=== PATIENT | male | born 1955 | race Caucasian/White ===

== ENCOUNTER 2016-07-21 22:32 | Inpatient (IN) | payer OTHER ==
--- NOTE | ~2016-07-21 | CN ---
Consultation Report [facility] [address] [place]. [address] NAME: OH ALLRED : 57 STATUS : ADM IN PAT#: [id number] AGE: 61 ADM/REG DATE : 07/21/16 MR#: [id number] REPORT SERV DATE: 07/22/16 DICTATED BY: DATE: REPORT STATUS : Draft TRANSCRIBED BY: MODTara DATE: 07/22/16 CONSULTATION REPORT DATE OF CONSULTATION: REASON FOR CONSULTATION: CKD. HISTORY OF PRESENT ILLNESS: Mr. Allred is a 61-year-old white male, known to have CKD, stage IV, who follows in the office with Dr. Kauffman. He has advanced CKD and has an AV fistula in place to the left upper arm. He left the hospital approximately two to three weeks ago with a creatinine of around 3.7. He presented back to the hospital at [facility] yesterday with abdominal pain and there was a question of whether this was acute renal failure, but it looks to be at his baseline and he was transferred here because there was thought that he may need dialysis. He is having no nausea, vomiting, and no shortness of breath. He is not on any oxygen. No fevers or chills. Actually feels well today. He states that he feels much better, and his abdominal complaints are resolved. PAST MEDICAL HISTORY: CKD, stage IV; bilateral BKA; diabetes; CHF; hypertension; COPD; hyperlipidemia; and peripheral vascular disease. SOCIAL HISTORY: He lives with family. Smokes. No alcohol or illicit drug use. FAMILY MEDICAL HISTORY: No end-stage renal disease. ALLERGIES: NONE. MEDICATIONS: At the time of consultation; aspirin, atorvastatin, Bumex, calcium acetate, carvedilol, docusate, gemfibrozil, heparin, insulin, isosorbide, hydralazine, and hydroxyzine. REVIEW OF SYSTEMS: A 12-point review of systems was obtained and negative with the exception of that in the HPI. PHYSICAL EXAMINATION: VITAL SIGNS: Temp 97.6, blood pressure 117/62, pulse 96, respiratory rate 16, and O2 saturation is 94% on room air. GENERAL: This is a pleasant, cooperative white male. He is awake, alert, and oriented x3, in no acute distress, answers questions appropriately. HEENT: Normocephalic and atraumatic. Conjunctivae are clear. Sclerae are anicteric. Poor jail. Oral mucosa is moist. NECK: Supple. I did not see neck vein distention. LUNGS: Respirations are even and unlabored. Globally decreased breath sounds, but clear. HEART: His heart rate is regular. No murmur, rub, or gallop. Consultation Report [facility] [id number] [place]. [address] NAME: OH ALLRED : 57 STATUS : ADM IN [facility]#: [id number] AGE: 61 ADM/REG DATE : 07/21/16 MR#: [id number] REPORT SERV DATE: 07/22/16 DICTATED BY: DATE: REPORT STATUS : Draft TRANSCRIBED BY: MODL DATE: 07/22/16 ABDOMEN: Soft, nontender, and obese. No CVA tenderness. BACK: Within normal limits. EXTREMITIES: Got bilateral BKA with no noted edema. NEURO: Generalized weakness. No focal deficits. His mood and affect, he is very pleasant and appropriate. PERTINENT LABS AND X-RAYS: Sodium 138, potassium 4.8, chloride 105, CO2 21, BUN of 66, creatinine of 3.7, calcium of 8.7, magnesium 2.3, phosphorus of 5.3. WBC is 9.1, H and H 7 and 25, and platelets 481,000. IMPRESSION: 1. Chronic kidney disease, stage IV. Creatinine is actually stable and he is experiencing no uremic symptoms, no volume overload issues that I could appreciate. He is stable on room air. 2. Abdominal pain. 3. Left AV fistula. 4. Left below-knee amputation that was recent due to osteomyelitis. 5. Right below-knee amputation, previously, diabetes. 6. Hypertension. 7. Peripheral vascular disease. 8. Chronic obstructive pulmonary disease. PLAN: No plan to initiate dialysis at this time. He does have an AV fistula in place, just ready for use when we do need to do so. He is on his usual medications. His oxygen saturations are stable. There was a question of some pulmonary edema, I will check a chest x-ray, that is physical exam is not consistent with this. We will follow along with you. Thank you for the consultation. GOKUL LIZY Jones / [id number] CC: Edis Gaitan DO
--- NOTE | ~2016-07-21 | DS ---
Discharge Summary [facility] [address] [place]. [address] NAME: OH TANG : 57 STATUS : DIS IN PAT#: [id number] AGE: 61 ADM/REG DATE : 07/21/16 MR#: [id number] REPORT SERV DATE: 07/26/16 DICTATED BY: LISA THOMAS DATE: 07/25/16 REPORT STATUS : Draft TRANSCRIBED BY: MODL DATE: 07/25/16 ADMISSION DATE: 07/21/2016 DISCHARGE DATE: 07/25/2016 DIAGNOSES: 1. Fluid overload. 2. Chronic obstructive pulmonary disease with exacerbation. 3. Chronic kidney disease. 4. History of type 2 diabetes. CONSULTANTS: Nephrology. HOSPITALIST: Edis Gaitan DO; Lisa Thomas M.D. DISCHARGE MEDICATIONS: Aspirin 81 mg p.o. daily, Lipitor 40 mg p.o. q.h.s., Bumex 2 mg p.o. b.i.d., PhosLo 667 mg p.o. with meals, Coreg 6.25 mg p.o. b.i.d., docusate sodium 100 mg p.o. b.i.d., Lopid 600 mg p.o. b.i.d., Levemir 10 units subcu q.12 hours, sliding scale insulin per home dose, isosorbide nitrite 10 mg p.o. three times a day, Atarax 25 mg p.o. three times a day, albuterol MDI two puffs inhaled scheduled every four hours, hydralazine 10 mg p.o. q.12 hours p.r.n. only for systolic pressures greater than 150, Spiriva one cap inhaled daily, sodium bicarb 650 mg p.o. daily. HOSPITAL COURSE: Please see H and P dictated by Dr. Everett Sr. This is a 61 years old male with a past medical history of bilateral lower extremity amputation, also history of CKD stage IV, presented to [facility], with anasarca and some lower abdominal discomfort and BUN and creatinine of 66 and 3.9. The patient follows up with Dr. Kauffman, chief airport guide. He was transferred to [facility] through the Hospitalist Service for further workup. The patient was seen by Dr. Everett Sr and then cared for by Dr. Edis Gaitan, who performed diuresing for the patient's anasarca. Also, the patient was seen by Nephrology, who stated the patient was stable clinically. The patient did not have any signs of infection. He required diabetes control, also treatment for COPD. By the time I saw this patient on 05/24/2017, the patient was very adamant about being discharged to home and very angry that he was still in the hospital and stated that he feels a lot better, not having any discomfort. Apparently, the patient did have a CT of the abdomen and pelvis while at [facility] prior to coming to [facility] which revealed no acute findings with the abdominal CT per report, but did find some moderate bilateral effusions and a small volume of ascites with some diffuse peritoneal stranding, but no pneumoperitoneum. The patient had a KUB as well at [facility] that was nondiagnostic. The patient was ready for discharge to home and clinically stable, having good bowel movements, feeling a lot better, and adamant about being discharged to home. O2 requirement also has improved during this hospital course, and also, the patient will be tested for any requirement for home O2 if needed will be ordered as per Case Management. Also, we will order home health nursing. Discharge Summary [address] [address] NAME: OH TANG : 57 STATUS : DIS IN [facility]#: [id number] AGE: 61 ADM/REG DATE : 07/21/16 MR#: [id number] REPORT SERV DATE: 07/26/16 DICTATED BY: LISA THOMAS DATE: 07/25/16 REPORT STATUS : Draft TRANSCRIBED BY: AIDEN DATE: 07/25/16 [facility]/AIDEN Lisa Thomas M.D. / [id number] CC: Aisha Back M.D.
--- NOTE | ~2016-07-21 | HP ---
History And Physical [place] [address] [facility] [place]. [address] NAME: MORALES ALLRED : 57 STATUS : ADM IN [facility]#: [id number] AGE: 61 ADM/REG DATE : 07/21/16 MR#: [id number] REPORT SERV DATE: 07/22/16 DICTATED BY: EVERETT MCCORMACK DATE: 07/22/16 REPORT STATUS : Draft TRANSCRIBED BY: MODL DATE: 07/22/16 DATE OF ADMISSION: 07/21/2016 CHIEF COMPLAINT: This is a patient I had accepted in transfer from [facility]. I spoke to Dr. Sarah over there. HISTORY OF PRESENT ILLNESS: Briefly, this is a 61-year-old male who was discharged from [facility] after he had a left below-knee amputation done due to wet gangrene, cellulitis, and osteomyelitis. He was discharged home and was doing well until today when he returned to the ER at [place] with anasarca and the lower abdominal pain. Workup there revealed worsening renal function with BUN and creatinine 66 and 3.9 respectively. He also had a potassium of 5.0 there. He is being followed by Dr. Kauffman, his procurement internship, for his renal failure and apparently has had many visits in his office. Hemodialysis has been contemplated. Mr. Allred has had a shunt placed in his arm which he says about four to six months ago already. In the ER there, he also had elevation of troponin from 0.05 to 0.07. EKG there showed no acute changes, although it did shows anterior infarct, age undetermined. According to Dr. Sarah, he also had bilateral pulmonary edema on his chest x-ray and ascites as well. The patient had requested transfer to [facility] rather than [place]. At the time of my evaluation here he denied any chest pain, palpitations, or orthopnea. He had no cough, hemoptysis, night sweats, or weight loss. He did not have any recent falls or loss of consciousness. No history of fevers, chills, nausea, vomiting, diarrhea. He did have some abdominal pain, which was in the lower abdomen. No history of recent hematemesis, hematochezia, or hematuria. No other history of recent travel or exposures other than those mentioned above. Of note, this left below-knee amputation wound is healing really well with no signs of infection. PAST MEDICAL HISTORY: His past medical history is significant for: 1. History of diabetes mellitus, poorly controlled. 2. Chronic congestive heart failure. 3. Peripheral vascular disease. 4. COPD. 5. Prior right henah-vlvu-ybgykeozey and recent left gfitk-prph-gwskwzxzfv. 6. He also has chronic kidney disease, stage 4, followed by Dr. Kauffman. SOCIAL HISTORY: He has about 50- to 62-pioe-zwuv history of smoking, although he has cut back now. He denies alcohol use or recreational drug use. He used to work in a nursery. FAMILY HISTORY: Noncontributory. MEDICATIONS: His medications at home were reviewed by me in the chart today and reordered by me. REVIEW OF SYSTEMS: As in history of present illness. All other systems were reviewed in detail and are quite History And Physical [address] [place]. [address] NAME: MORALES ALLRED : 57 STATUS : ADM IN [facility]#: [id number] AGE: 61 ADM/REG DATE : 07/21/16 MR#: [id number] REPORT SERV DATE: 07/22/16 DICTATED BY: EVERETT MCCORMACK DATE: 07/22/16 REPORT STATUS : Draft TRANSCRIBED BY: AIDEN DATE: 07/22/16 unremarkable. PHYSICAL EXAMINATION: GENERAL: This is a pleasant 61-year-old, not in any acute distress. HEENT: His head is atraumatic and normocephalic. He is alert, awake, oriented to time, place, and person. Pupils are equal, reacting to light and accommodating. External ocular muscles are intact. Membranes are moist and pink. Sclerae are nonicteric. NECK: Supple with no jugular venous distention, lymphadenopathy, or thyromegaly. LUNGS: Clear to auscultation with no wheezes, rubs, or crackles. HEART: Heart sounds were regular with no murmurs, rubs, or gallops. ABDOMEN: Soft and nontender. Bowel sounds are present. EXTREMITIES: Bilateral below-knee amputation. No cyanosis or clubbing. NEUROLOGIC: Grossly intact. No focal sensory or motor deficits. Higher functions appeared intact. VITAL SIGNS: His vital signs today showed a temperature of 97.9, pulse 99, respirations 20 a minute, blood pressure was 140/76, and oxygen saturations were 100% breathing 2 L via nasal cannula. LABORATORY DATA: Laboratory data and other data which accompanied the patient from [facility] was reviewed by me in the chart today. IMPRESSION: 1. Acute on chronic kidney disease to end-stage renal disease. 2. Elevated troponins. 3. Recent left ewiwp-esmz-gswcgfrtqg. 4. Diabetes mellitus, poorly controlled. 5. Chronic congestive heart failure. 6. Peripheral vascular disease. 7. Chronic obstructive pulmonary disease. 8. Prior right yzzoj-ouwn-ubbgzimjqm. PLAN: We will admit Mr. Allred to Cardiac Telemetry Unit for close monitoring. We will follow serial cardiac enzymes to rule out acute coronary syndrome which is probably secondary to his acute on chronic kidney disease. We will go ahead and consult Dr. Kauffman and I think a dialogue has been going on regarding hemodialysis. We will let Dr. Kauffman advice the patient accordingly. Meanwhile, we will start him on bronchodilator treatments, continue supplemental oxygen therapy, and place him on NovoLog given subcutaneously per sliding scale for blood sugar control. He will be placed on unfractionated heparin for DVT prophylaxis while here. I have discussed the above plans with the patient. His questions were answered and he is agreeable to the above recommendations. Hospitalist Service will be following him during his stay here. /AIDEN History And Physical [address] [address] NAME: MORALES ALLRED : 57 STATUS : ADM IN [facility]#: [id number] AGE: 61 ADM/REG DATE : 07/21/16 MR#: [id number] REPORT SERV DATE: 07/22/16 DICTATED BY: EVERETT MCCORMACK DATE: 07/22/16 REPORT STATUS : Draft TRANSCRIBED BY: AIDEN DATE: 07/22/16 Everett Mccormack M.D. / [id number] CC: Kevin Dave MD
[~2016-07-21 22:32] MED LIST: AMIT10 PO; APRES10B PO; ASAB PO; AT25 PO; BUM1 PO; BUM2 PO; COREG6 PO; COZ50 PO; DEMA20 PO; DSS PO; GLUCOPHAGE1000 MG PO; HUMULIN N1 ML SC; HUMULIN R1 ML SC; INSNOVN SC; L40 PO; LEVEMIR SC; LIPITOR40 PO; LOP50 PO; LOPID6 PO; MONOKET PO; NORV10 PO; NOVOLOG SC; PERCOCET1 TA2 PO; PHOSLO PO; PROVHFA INH; ZANTAC150 MG PO
[2016-07-22 06:55] LABS: BASOPHILS 0.7 %; BASOPHILS ABSOLUTE 0.06 10/3/uL (0.0-0.16); EOSINOPHILS 11.8 %; EOSINOPHILS ABSOLUTE 1.07 10/3/uL (0.0-0.53); HEMATOCRIT 25.8 % (40.0-51.0); HEMOGLOBIN 7.9 g/dL (13.6-17.8); IMMATURE GRANULOCYTES 0.2 %; IMMATURE GRANULOCYTES ABSOLUTE 0.02 10/3/uL (0.0-0.11); LYMPHOCYTES 16.9 %; LYMPHOCYTES ABSOLUTE 1.53 10/3/uL (0.67-4.30); MEAN CORPUS HGB CONC 30.6 g/dL (32.0-36.0); MEAN CORPUSCULAR HEMOGLOB 23.9 pg (26.0-34.0); MEAN CORPUSCULAR VOLUME 78.2 fL (80-100); MEAN PLATELET VOLUME 9.1 fL (9.2-13.0); MONOCYTES 6.6 %; NEUTROPHILS 63.8 %; PLATELET COUNT 481 10/3/uL (150-400); RBC DISTRIBUTION WIDTH 19.5 % (12.0-16.0)
[2016-07-22 06:56] LABS: MANUAL DIFF NO %; WHITE BLOOD CELLS 9.1 10/3/uL (4.5-10.5)
[2016-07-22 07:12] LABS: CALCIUM, SERUM 8.7 MG/DL (8.5-10.4); CREATININE 3.75 MG/DL (0.70-1.30); GFR AFRICAN AMERICAN 19 ML/MIN (>=60); GFR NON AFRICAN AMERICAN 16 ML/MIN (>=60); GLUCOSE, SERUM 126 MG/DL (60-99); PHOSPHORUS, SERUM 5.3 MG/DL (2.5-4.5); POTASSIUM, SERUM 4.8 MMOL/L (3.5-5.3); SODIUM, SERUM 138 MMOL/L (135-148)
[2016-07-22 07:13] LABS: BUN (BLOOD UREA NITROGEN) 66 MG/DL (6-23); CHLORIDE, SERUM 105 MMOL/L (96-112); CO2 (CARBON DIOXIDE) 21 MMOL/L (24-34)
[2016-07-22 22:39] LABS: ASCORBIC ACID (UR NOT ORDER) NEG (NEG); BILIRUBIN, URINE NEGATIVE (NEG); KETONE, URINE NEGATIVE (NEG); LEUKOCYTE ESTERASE(NOT OR LARGE (NEG); WBC (NOT ORDERED) (RFLEX) > 182 (0-5)
[2016-07-23 06:34] LABS: BUN (BLOOD UREA NITROGEN) 68 MG/DL (6-23); CALCIUM, SERUM 8.5 MG/DL (8.5-10.4); CHLORIDE, SERUM 104 MMOL/L (96-112); CO2 (CARBON DIOXIDE) 23 MMOL/L (24-34); CREATININE 3.81 MG/DL (0.70-1.30); FERRITIN 59 NG/ML (26-388); GFR AFRICAN AMERICAN 19 ML/MIN (>=60); GFR NON AFRICAN AMERICAN 16 ML/MIN (>=60); IRON BINDING CAPACITY 272 MCG/DL (250-450); IRON, SERUM 13 MCG/DL (35-150); PHOSPHORUS, SERUM 4.9 MG/DL (2.5-4.5); SODIUM, SERUM 138 MMOL/L (135-148)
[2016-07-23 06:35] LABS: ALBUMIN 2.2 G/DL (3.5-5.0); GLUCOSE, SERUM 171 MG/DL (60-99)
[2016-07-23 07:43] LABS: PROCALCITONIN 0.16 ng/mL (<0.5)
[2016-07-25 10:45] LABS: B NATRIURETIC PEPTIDE (BNP) > 5000.0 PG/ML (< 100.0)
[2016-07-25 13:26] LABS: GLYCOHEMOGLOBIN (HbA1c) 6.7 % (4.7-6.1)
[2016-07-25] MEDS ORDERED: SODBICAR10 (18:33)
[2016-07-25] MEDS ORDERED: SPIRIVA (18:36)
[2016-07-25] MEDS ORDERED: VENTOLIN HFA INH (18:36)
== END 2016-07-25 19:07 | disposition home or self-care (01) | DRG 291 ==
LOC: 4SO 22:32 → 7NO 07-22 00:07
PROVIDERS: Internal Medicine; Internal Medicine Pulmonary Disease; Nurse Practitioner
DX: I13.0 Hypertensive heart and chronic kidney disease with heart failure and stage 1 through stage 4 chronic kidney disease, or unspecified chronic kidney disease (principal); I50.41 Acute combined systolic (congestive) and diastolic (congestive) heart failure; E11.22 Type 2 diabetes mellitus with diabetic chronic kidney disease; R18.8 Other ascites; N17.9 Acute kidney failure, unspecified; N18.4 Chronic kidney disease, stage 4 (severe); J44.1 Chronic obstructive pulmonary disease with (acute) exacerbation; I73.9 Peripheral vascular disease, unspecified; Z89.512 Acquired absence of left leg below knee; Z89.511 Acquired absence of right leg below knee
CPT/HCPCS: 71010; 74000; 80048; 80069; 81001; 82728; 82962; 83036; 83540; 83550; 83735; 83880; 84100; 84145; 85025; 87040; 87086; 94640; A9270-GY; J1170